=== PATIENT | female | born 1980 | race Caucasian/White ===

== ENCOUNTER 2020-08-04 15:34 | Outpatient (CLI) | payer OTHER | END 2020-08-04 15:35 | disposition home or self-care (01) | LOC: COV 15:34 | PROVIDERS: ATTEND Family Medicine | DX: R05 Cough (principal); R53.83 Other fatigue; R09.81 Nasal congestion; R11.2 Nausea with vomiting, unspecified; Z20.828 Contact with and (suspected) exposure to other viral communicable diseases ==

== ENCOUNTER 2024-05-20 07:53 | Outpatient (CLI) | payer OTHER ==
[2024-05-20 14:20] LABS: BASOPHILS % (AUTO) 0.2 %; EOSINOPHILS # (AUTO) 0.1 10^3/uL (0.0-0.7); EOSINOPHILS % (AUTO) 3.3 %; HCT - HEMATOCRIT 39.4 % (37.0-47.0); HGB - HEMOGLOBIN 13.1 g/dL (12.0-16.0); LYMPHOCYTES # (AUTO) 1.5 10^3/uL (1.5-3.5); LYMPHOCYTES % (AUTO) 34.1 %; MEAN CORPUSCULAR HGB CONC 33.2 g/dL (32.0-36.0); MEAN CORPUSCULAR VOLUME 90.2 fL (81.0-99.0); MEAN PLATELET VOLUME 12.7 fL (7.9-10.8); MONOCYTES # (AUTO) 0.3 10^3/uL (0.0-1.0); NEUTROPHILS # (AUTO) 2.4 10^3/uL (1.5-6.6); NEUTROPHILS % (AUTO) 55.2 %; PLT - PLATELET COUNT 154 10^3/uL (130-450); RED BLOOD COUNT 4.37 10^6/uL (4.20-5.40); RED CELL DISTRIBUTION WIDTH 12.8 % (12.0-15.0); WHITE BLOOD COUNT 4.3 x10^3/uL (4.8-10.8)
[2024-05-20 14:58] LABS: % IRON SATURATION 19 % (20-50); ALBUMIN 4.3 g/dL (3.2-5.5); ALBUMIN/GLOBULIN RATIO 1.6 (1.0-2.2); ALKALINE PHOSPHATASE 44 IU/L (42-121); ALT ALANINE AMINOTRANSFERASE 10 IU/L (10-60); AST ASPARTATE AMINOTRANSFERASE 15 IU/L (10-42); BILIRUBIN,TOTAL 0.3 mg/dL (0.2-1.0); BUN - BLOOD UREA NITROGEN 21 mg/dL (6-20); CALCIUM 9.4 mg/dL (8.5-10.3); CARBON DIOXIDE - CO2 25 mmol/L (21-32); CHLORIDE 108 mmol/L (101-111); CHOLESTEROL 157 mg/dL; CREATININE 0.7 mg/dL (0.6-1.3); CRP HIGH SENSITIVITY 0.44 mg/L; GFR - MDRD 90 (>89); GLUCOSE 97 mg/dL (74-104); HDL CHOLESTEROL 53 mg/dL; IRON 67 ug/dL (50-212); LDL CHOLESTEROL,CALCULATED 94 mg/dL; LDL/HDL RATIO 1.8 (<4.4); SODIUM 137 mmol/L (135-145); TOTAL IRON BINDING CAPACITY 357 ug/dL (250-450); TRANSFERRIN 255 mg/dL (203-362); TRIGLYCERIDES 52 mg/dL (48-352); VLDL CHOLESTEROL 10 mg/dL
[2024-05-20 15:07] LABS: THYROID STIMULATING HORMONE 3.32 uIU/mL (0.34-5.60)
[2024-05-20 15:14] LABS: FERRITIN 38.1 ng/mL (11.0-306.8)
[2024-05-21 08:11] LABS: DHEA-SULFATE 92.4 ug/dL (41.2-243.7)
== END 2024-05-20 07:54 | disposition home or self-care (01) ==
LOC: LAB.S 07:53
DX: K59.00 Constipation, unspecified (principal); Z13.29 Encounter for screening for other suspected endocrine disorder; Z13.21 Encounter for screening for nutritional disorder; N95.1 Menopausal and female climacteric states; E66.3 Overweight; Z83.49 Family history of other endocrine, nutritional and metabolic diseases; F41.9 Anxiety disorder, unspecified; E61.1 Iron deficiency; R00.2 Palpitations
CPT/HCPCS: 36415; 80053; 80061; 82533; 82607; 82627; 82728; 82746; 83001; 83525; 83540; 83721; 84439; 84443; 84466; 84481; 85025; 86141; 86376